=== PATIENT | female | born 1980 | race Hispanic/Latino ===

== ENCOUNTER 2024-11-17 11:41 | Emergency (ER) | payer BC ==
[~2024-11-17] VITALS: Ht 154.9 cm; Wt 108.9 kg
[2024-11-17 12:20] LABS: ADD UA MICROSCOPIC YES; APPEARANCE,URINE CLEAR (CLEAR); BILIRUBIN,URINE NEGATIVE (NEGATIVE); COLOR,URINE LIGHT-YELLOW (YELLOW); GLUCOSE, URINE (UA) NEGATIVE (NEGATIVE); KETONES,URINE NEGATIVE (NEGATIVE); LEUKOCYTE ESTERASE ,URINE 75 Leu/uL (NEGATIVE); NITRATE,URINE NEGATIVE (NEGATIVE); OCCULT BLOOD,URINE MODERATE (NEGATIVE); PH,URINE 5.5 (5.0-8.0); PROTEIN,URINE 10 mg/dL (NEGATIVE); UROBILINOGEN,URINE 0.2 mg/dL (0.2-1.0)
[2024-11-17 12:22] LABS: BACTERIA,URINE RARE /HPF (None Seen); SQUAMOUS EPITHELIAL CELL,UR FEW /HPF (0-2)
[2024-11-17] MEDS: cefTRIAXone 1G VIAL IM ONE (13:57)
[2024-11-17] MEDS: ketOROlac 15MG/ML VIAL (15MG/ML) IM ONE (13:58)
--- NOTE | 2024-11-17 13:58 | ERN ---
ED Note History of Present Illness Stated Complaint: PELVIC PAIN, NAUSEA Chief Complaint: Pelvic Pain Time Seen by MD: 12:06 Dictation: 44-year-old female presents to the ED for evaluation of pelvic pain onset this morning. Patient is complaining of urgency, pelvic pressure, and nausea but denies any dysuria, hematuria or any other associated symptoms at this time. Patient states she was walking around [employer] when she began experiencing pelvic pressure. Allergies: Coded Allergies: No Known Drug Allergies (Unverified Allergy, Unknown, 11/17/24) Home Meds Active Scripts Nitrofurantoin Monohyd/M-Cryst (Macrobid 100 mg Capsule) 100 Mg Capsule, 1 CAP PO BID for 7 Days, #14 CAP 0 Refills Prov:JOY BLACKWELL MD 11/17/24 Past Medical History Past Medical History: Diabetes-Type II, High Cholesterol, Hypertension Surgical History: Review of System Dictation Constitutional: Negative for fever,chills, and weight loss Eyes: Negative for injury, pain,redness, and discharge ENT: Negative for injury,pain or swelling Cardiovascular: Negative for chest pain, palpitations, and edema Respiratory: Negative for shortness of breath, cough, and wheezing, Abdomen/GI: Positive for pelvic pain, pressure, nausea Negative for abdominal pain vomiting, diarrhea, and constipation Back: Negative for injury and pain : Positive for urgency Negative for injury, bleeding and discharge MS/Extremity: Negative for injury and deformity Skin: Negative for rash, and discoloration Neuro: Negative for headache, weakness, numbness, tingling, and seizure Psych: Negative for suicide ideation, homicidal ideation, and hallucinations Initial Vital Sign VS Vital Signs Date Time Temp Pulse Resp B/P (MAP) Pulse Ox O2 Delivery O2 Flow Rate FiO2 11/17/24 11:43 97.5 101 14 149/101 98 Room Air 0 Physical Exam Dictation General: awake, alert, NAD Head/Face: Normocephalic, atraumatic Eyes: PERRL, EOMI, vision at baseline ENT: oral cavity clear, TMs clear, no signs of infection Neck: Trachea midline, supple, no nuchal rigidity Cardiovascular: RRR, normal S1/S2, No MRGs, no JVD Respiratory: CTAB, no respiratory distress, No rales or wheezes Abdomen: Soft, non-tender, non-distended, normal bowel sounds, no guarding or rebound. Skin: Warm, dry, normal turgor, no rash MS/Extremity: Pulses equal, no cyanosis, neurovascular intact, FROM Neuro: COAx4, GCS 15, strength 5/5, CN 2-12 intact, normal cerebellar exam, normal gait, Psych: Normal behavior, mood, and affect normal Results (Laboratory/Radiology) Laboratory/Radiology Laboratory Tests Test 11/17/24 12:10 Urine Color LIGHT-YELLOW (YELLOW) Urine Appearance CLEAR (CLEAR) Urine pH 5.5 (5.0-8.0) Urine Specific [place] 1.021 (1.001-1.031) Urine Protein 10 mg/dL (NEGATIVE) H Urine Glucose (UA) NEGATIVE mg/dL (NEGATIVE) Urine Ketones NEGATIVE mg/dL (NEGATIVE) Urine Occult Blood MODERATE (NEGATIVE) H Urine Nitrate NEGATIVE (NEGATIVE) Urine Bilirubin NEGATIVE mg/dL (NEGATIVE) Urine Urobilinogen 0.2 mg/dL (0.2-1.0) Urine Leukocyte Esterase 75 Ana/uL (NEGATIVE) H Urine RBC 11-25 /HPF (0-1) H Urine WBC 11-25 /HPF (0-1) H Urine Squamous Epithelial Cells FEW /HPF (0-2) Urine Bacteria RARE /HPF (None Seen) Labs Reviewed?: Yes ED Course ED Course Orders Procedure Category Date Status Time Urinalysis Profile LAB 11/17/24 Complete 12:09 Culture Urine JOHN 11/17/24 In Process 12:20 Ceftriaxone 1g Vial PHA 11/17/24 Complete (Rocephine 1g Inj) 14:00 Ketorolac PHA 11/17/24 Complete Tromethamine 15mg/Ml 14:00 Current Medications Medications (Trade) Dose Ordered Sig/Stephan Route PRN Reason Start Time Stop Time Status Last Admin Dose Admin Ceftriaxone Sodium (ROCEphine 1G INJ) 1 gm ONCE ONCE IM 11/17/24 14:00 11/17/24 14:01 DC 11/17/24 13:57 Ketorolac Tromethamine (toRADol) 15 mg ONCE ONCE IM 11/17/24 14:00 11/17/24 14:01 DC 11/17/24 13:58 Vital Signs Date Time Temp Pulse Resp B/P (MAP) Pulse Ox O2 Delivery O2 Flow Rate FiO2 11/17/24 11:43 97.5 101 14 149/101 98 Room Air 0 Medical Decision Making MDM MDM: Differential diagnosis: UTI, pelvic discomfort Risk of complication and/or morbidity or mortality of patient management: None Medications-Per medication reconciliation Need for hospitalization: Patient does not meet criteria for hospitalization. Need for emergency major/minor surgery: No There are no social concerns with this patient. Prescription drug management Prescriptions will include symptomatic care I independently interpreted the test that were performed, results were reviewed by me and considered findings on radiology if ordered. Medical management and examination interpretation discussions were had by me with other qualified healthcare professionals as indicated for the patient's care. DX & DISP Disposition: Discharge Departure Impression: Primary Impression: Acute UTI Condition: Stable Scripts Nitrofurantoin Monohyd/M-Cryst (Macrobid 100 mg Capsule) 100 Mg Capsule 1 CAP PO BID for 7 Days, #14 CAP 0 Refills Prov: JOY BLACKWELL MD 11/17/24 JOY BLACKWELL MD November 17, 2024 13:58
[2024-11-17] MEDS ORDERED: NITR100C4 PO (14:56)
[2024-11-17 15:07] VITALS: BP 152/80; PULSE 112; RESP 18; TEMP 98.9; O2SAT 98
== END 2024-11-17 15:43 | disposition home or self-care (01) ==
LOC: EDH 11:41
DX: N39.0 Urinary tract infection, site not specified (principal); E11.9 Type 2 diabetes mellitus without complications; E78.00 Pure hypercholesterolemia, unspecified; I10 Essential (primary) hypertension; Z98.890 Other specified postprocedural states
CPT/HCPCS: 99284; 87086; 81001; 96372 ×2; J1885; J0696